=== PATIENT | male | born 1960 | race Caucasian/White ===

== ENCOUNTER 2017-05-19 07:43 | Emergency (ER) | payer OTHER ==
[~2017-05-19] VITALS: Ht 200.7 cm; Wt 149.2 kg
[2017-05-19 08:30] VITALS: BP 113/82
== END 2017-05-19 08:30 | disposition home or self-care (01) ==
LOC: ED 07:43
DX: K11.21 Acute sialoadenitis (principal); E11.9 Type 2 diabetes mellitus without complications; I10 Essential (primary) hypertension; E78.00 Pure hypercholesterolemia, unspecified; E66.01 Morbid (severe) obesity due to excess calories; G89.4 Chronic pain syndrome